=== PATIENT | female | born 1975 | race Two or more races ===

== ENCOUNTER 2023-01-16 09:45 | Emergency (ER) | payer OTHER, SELFPAY ==
[2023-01-16 10:12] VITALS: BP 138/91; PULSE 71; RESP 16; TEMP 36.7; O2SAT 100
--- NOTE | 2023-01-16 10:18 | ED.URI ---
HPI - URI/Sore Throat General Chief Complaint: Upper Respiratory Infection Stated Complaint: Cough Time Seen by Provider: 01/16/23 10:19 Source: patient, family, RN notes reviewed and old records reviewed Mode of arrival: ambulatory Limitations: no limitations History of Present Illness HPI Narrative: 47 year old female who presents to [facility] care accompanied by spouse and child with complaints of cough, fever, and feelings of congestion and some body aches since yesterday. Patient reports that she did have fever up to 100.4F last evening. Patient reports that she does have history of asthma but does not have present inhaler. Patient reports that she just traveled on 30 hour flight from [facility]. Patient reports that immunizations are up to date. MD elicited complaint: fever and cough Pertinent past history: asthma Onset (ago): day(s) (1) Able to tolerate fluids by mouth: Yes Treatments prior to arrival: acetaminophen Related Data Home Medications Medication Instructions Recorded Confirmed escitalopram oxalate 5 mg tablet 5 mg PO DAILY 01/16/23 01/16/23 Allergies Allergy/AdvReac Type Severity Reaction Status Date / Time No Known Allergies Allergy Verified 01/16/23 10:20 Review of Systems Review of Systems: CONSTITUTIONAL:Reports malaise, chills, sweats, or fever. EYES: Denies visual changes, redness, or discharge. ENT: Reports rhinorrhea, congestion, no sinus pain, no otalgia or sore throat. CARDIOVASCULAR: Denies chest pain, palpitations, or edema. RESPIRATORY: Reports cough.? Denies dyspnea. GASTROINTESTINAL: Denies abdominal pain, nausea, vomiting, diarrhea SKIN: Denies rash or itching. MUSCULOSKELETAL: Reports myalgia. NEUROLOGIC: Denies headache. All systems reviewed & are unremarkable except as noted in HPI and below PMFSH Past Medical History Medical History (Updated 01/17/23 @ 19:40 by Myla Díaz NP) Anxiety Asthma Social History Social History (Updated 01/17/23 @ 19:38 by Myla Díaz NP) Smoking status: Never smoker Alcohol intake: current Alcohol use details: social Substance use type: does not use Living arrangements: with family Gender identity (if verbalized by the patient): Female Comments At time of signature, agree with nursing past medical, surgical, social and family history. There is no relevant family history pertinent to the presenting complaint Exam Narrative: GENERAL: Well-appearing, well-nourished, and in no acute distress. HEAD: Normocephalic EYES: PERRLA, conjunctivae clear ENT: Nares clear, turbinates edematous and erythematous, clear discharge. Mucous membranes moist. TM pearly choe with dull light reflex bilaterally; no tragal tenderness. Oropharynx erythematous without lesions. Tonsils not enlarged and without exudate, no drooling, no hoarseness, no trismus, uvula midline.post nasal discharge NECK: Supple. No lymphadenopathy CHEST: Clear to auscultation, breath sounds equal. No wheezing, rhonchi, rales, or stridor. No respiratory distress, speaks in full sentences.cough, SAO2 100% on room air HEART: Regular rate and rhythm. No murmur heard. SKIN: Warm, dry, no rash. NEURO: Alert and oriented x3. PSYCH: Normal mood and affect Course Course Emergency Course: Patient is aware of diagnosis, understands and agrees to treatment plan.? Anticipatory guidance given.? Patient agrees to follow-up as directed and is aware of reasons to seek care at the emergency department. Portions of this record may have been created with voice recognition software Level of Care: Express Care Visit Vital Signs Vital signs: Vital Signs Temperature 36.7 C 01/16/23 10:12 Pulse Rate 71 01/16/23 10:12 Respiratory Rate 16 01/16/23 10:12 Blood Pressure 138/91 H 01/16/23 10:12 Pulse Oximetry 100 01/16/23 10:12 Oxygen Delivery Room Air 01/16/23 10:12 Temperature 36.7 C 01/16/23 10:12 Pulse Rate 71
== END 2023-01-16 11:07 | disposition home or self-care (01) ==
PROVIDERS: Emergency Provider Registered Nurse
DX: J06.9 Acute upper respiratory infection, unspecified (principal); R05.1 Acute cough; J45.909 Unspecified asthma, uncomplicated
CPT/HCPCS: 99203; G0463